=== PATIENT | female | born 1980 | race Caucasian/White ===

== ENCOUNTER 2018-08-21 01:55 | Emergency (ER) | payer OTHER ==
[~2018-08-21] VITALS: Ht 165.1 cm; Wt 68.2 kg
[2018-08-21 02:07] VITALS: Ht 165.1 cm; Wt 68.2 kg
--- NOTE | 2018-08-21 02:11 | ERD ---
ER Documentation Chief Complaint Chief Complaint PSYCH EVAL. ROOMATES STATE PT HAS NOT BEEN ACTING LIKE HER SELF. HPI The patient is a 38-year-old female, presenting to the ER because she has not been acting normally according to her roommate who called 911 to bring her to the hospital. She is not cooperative with the history and physical. Past medical history: Bipolar History/social history/review system: Unable to obtain due to her condition ROS All systems reviewed and are negative except as per history of present illness. Physical Exam Vitals Vital Signs Date Temp Pulse Resp B/P (MAP) Pulse Ox O2 O2 Flow FiO2 Time Delivery Rate 08/21/18 99.1 98 16 143/89 100 02:07 (107) Physical Exam Const: No acute distress. Head: Atraumatic. Eyes: Normal Conjunctiva. ENT: Normal External Ears, Nose and Mouth. Neck: Full range of motion. No meningismus. Resp: Clear to auscultation bilaterally. Cardio: Regular rate and rhythm. Abd: Soft, non distended, normal bowel sounds, non tender. Skin: No petechiae or rashes. Back: No midline or flank tenderness. Ext: No cyanosis, or edema. Neur: Awake and alert. No focal deficit Psych: Psychotic. Result Diagram: 08/21/18 0220 08/21/18 0220 Results 24 hrs Laboratory Tests Test 08/21/18 02:20 08/21/18 02:26 08/21/18 02:35 08/21/18 02:36 White Blood Count 10.3 10^3/ul Red Blood Count 4.14 10^6/ul Hemoglobin 13.0 g/dl Hematocrit 39.4 % Mean Corpuscular 95.2 fl Volume Mean Corpuscular 31.4 pg Hemoglobin Mean Corpuscular 33.0 g/dl Hemoglobin Concent Red Cell 12.0 % Distribution Width Platelet Count 325 10^3/UL Mean Platelet 9.6 fl Volume Immature 0.500 % Granulocytes % Neutrophils % 63.8 % Lymphocytes % 27.2 % Monocytes % 6.9 % Eosinophils % 1.1 % Basophils % 0.5 % Nucleated Red Blood 0.0 /100WBC Cells % Immature 0.050 10^3/ul Granulocytes # Neutrophils # 6.6 10^3/ul Lymphocytes # 2.8 10^3/ul Monocytes # 0.7 10^3/ul Eosinophils # 0.1 10^3/ul Basophils # 0.1 10^3/ul Nucleated Red Blood 0.0 10^3/ul Cells # Sodium Level 141 mmol/L Potassium Level 3.4 mmol/L Chloride Level 107 mmol/L Carbon Dioxide 24 mmol/L Level Anion Gap 10 Blood Urea Nitrogen 15 mg/dl Creatinine 0.87 mg/dl Est Glomerular > 60 mL/min Filtrat Rate mL/min Glucose Level 122 mg/dl Calcium Level 9.7 mg/dl Total Bilirubin 0.1 mg/dl Direct Bilirubin 0.00 mg/dl Indirect Bilirubin 0.1 mg/dl Aspartate Amino 54 IU/L Transf (AST/SGOT) Alanine 57 IU/L Aminotransferase (A LT/SGPT) Alkaline 84 IU/L Phosphatase Total Protein 7.3 g/dl Albumin 4.4 g/dl Globulin 2.90 g/dl Albumin/Globulin 1.51 Ratio Beta HCG, < 2.4 mIU/ml Quantitative Salicylates Level < 1.0 mg/dl Acetaminophen Level < 10.0 ug/ml Ethyl Alcohol Level < 10.0 mg/dl Urine Color ARLEN Urine Clarity SLIGHTLY CLOUDY Urine pH 7.0 Urine Specific 1.014 [place] Urine Ketones NEGATIVE mg/dL Urine Nitrite NEGATIVE mg/dL Urine Bilirubin NEGATIVE mg/dL Urine Urobilinogen 1+ mg/dL Urine Leukocyte TRACE [place]/ul Esterase Urine Microscopic > 182 /HPF RBC Urine Microscopic 21 /HPF WBC Urine Squamous FEW /HPF Epithelial Cells Urine Bacteria FEW /HPF Urine Mucus FEW /HPF Urine Hemoglobin 3+ mg/dL Urine Glucose NEGATIVE mg/dL Urine Total Protein 1+ mg/dl Urine Opiates Negative Screen Urine Barbiturates Negative Urine Amphetamines Negative Screen Urine Negative Benzodiazepines Screen Urine Cocaine Negative Screen Urine Cannabinoids Negative Bedside Urine pH 7.0 (LAB) Bedside Urine 2+ Protein (LAB) Bedside Urine Negative Glucose (UA) Bedside Urine Negative Ketones (LAB) Bedside Urine Blood 3+ Bedside Urine Negative Nitrite (LAB) Bedside Urine Trace Leukocyte Esterase (L POC Beta HCG, NEGATIVE Qualitative Current Medications Medications Dose Sig/Kevon Start Time Status Last (Trade) Ordered Route PRN Stop Time Admin Dose Reason Admin 5 mg BID PO 08/21/18 UNV Aripiprazole 09:00 (Abilify) Procedures/MDM MEDICAL MAKING DECISION: The patient is a 38-year-old female, presenting with acute psychosis, acute hypokalemia. She was treated with potassium chloride 40 mg p.o. for acute hypokalemia with good response The differential diagnoses considered include but are not limited to decompensated psychiatric illness, anxiety attack, panic attack, substance abuse Consultation: She was evaluated by telepsychiatrist who put on treatment 5150 hold and recommended Abilify Departure Diagnosis: Primary Impression: Psychosis Additional Impression: Hypokalemia Condition: Stable Comments The patient's blood pressure was elevated (>120/80) but appears stable without evidence of hypertension emergency or urgency. The patient was counseled about the risks of hypertension and urged to pursue outpatient monitoring and therapy within a week with their primary care physician. She is awaiting for PET evaluation CARLOS MARTINES MD Aug 21, 2018 02:11
--- NOTE | 2018-08-21 03:08 | PSY ---
Date/Time of Note Date/Time of Note DATE: 08/21/18 TIME: 03:06 Psychiatric Subjective Eval Consent Pt consented to telemedicine: Yes Subjective Evaluation Patient location: emergency Chief Complaint: PSYCH EVAL. ROOMATES STATE PT HAS NOT BEEN ACTING LIKE HER SELF. Medical history Problems Medical Problems: (1) Diabetes Status: Acute Psychiatric Objective Eval Mental Status Examination: Laboratory Results Laboratory Tests Test 08/21/18 02:20 08/21/18 02:35 08/21/18 02:36 White Blood Count 10.3 10^3/ul Red Blood Count 4.14 10^6/ul Hemoglobin 13.0 g/dl Hematocrit 39.4 % Mean Corpuscular Volume 95.2 fl Mean Corpuscular Hemoglobin 31.4 pg Mean Corpuscular Hemoglobin Concent 33.0 g/dl Red Cell Distribution Width 12.0 % Platelet Count 325 10^3/UL Mean Platelet Volume 9.6 fl Immature Granulocytes % 0.500 % Neutrophils % 63.8 % Lymphocytes % 27.2 % Monocytes % 6.9 % Eosinophils % 1.1 % Basophils % 0.5 % Nucleated Red Blood Cells % 0.0 /100WBC Immature Granulocytes # 0.050 10^3/ul Neutrophils # 6.6 10^3/ul Lymphocytes # 2.8 10^3/ul Monocytes # 0.7 10^3/ul Eosinophils # 0.1 10^3/ul Basophils # 0.1 10^3/ul Nucleated Red Blood Cells # 0.0 10^3/ul Bedside Urine pH (LAB) 7.0 Bedside Urine Protein (LAB) 2+ Bedside Urine Glucose (UA) Negative Bedside Urine Ketones (LAB) Negative Bedside Urine Blood 3+ Bedside Urine Nitrite (LAB) Negative Bedside Urine Leukocyte Esterase (L Trace POC Beta HCG, Qualitative NEGATIVE Assessment and Plan Recommendation/Plan Discharge Disposition: Psychiatric inpatient Legal Status: Release involuntary hold Assessment Additional comments: IDENTIFYING INFORMATION: 38 year old Female patient who is currently located at the hospital and for whom psychiatric consultation was requested. SOURCES OF INFORMATION: The patient who appears to be somewhat reliable and the medical records; the nursing staff. CHIEF COMPLAINT: "I have bipolar disorder type 1, we were fighting with my roommate". HISTORY OF PRESENT ILLNESS: The patient was interviewed via telemedicine in the presence of and under the supervision of nursing staff of the hospital. The consent to conducting this interview via telemedicine was obtained by the nursing staff at the hospital. The patient reports having a verbal argument with her roommate, has insomnia. Reports that she is dreaming when asked to whom she talking to while RTIS. The patient denies having AH, VH, delusions, low appetite. The patient reports drinking occasionally. Last drink was a few days ago. The patient denies using alcohol heavily or regularly. The patient denies using any other substances. In terms of past psychiatric history, the patient reports having a history of past psychiatric hospitalizations; last time was 1 week ago. PAST MEDICAL HISTORY: none. CURRENT MEDICATIONS: lithium 900 mg po qhs. ALLERGIES TO MEDICATIONS: NKDA. LABORATORY TESTS: CBC unremarkable, test negative. SOCIAL HISTORY: declined to provide any information regarding her SH. REVIEW OF SYSTEMS: Constitutional (e.g., fever, weight loss): negative; Eyes, Ears, Nose, Mouth, Throat: negative; Cardiovascular: negative; Respiratory: negative; Gastrointestinal: negative; Genitourinary: negative; Musculoskeletal: negative; Integumentary (skin and/or breast): negative; Neurological: negative; Psychiatric: as per HPI; Endocrine: negative; Hematologic/Lymphatic: negative; Allergic/Immunologic: negative. MENTAL STATUS EXAMINATION: General Appearance and Behavior: restless, appears to be responding to internal stimuli, partially cooperative with most of the interview, distant, suspicious with the current interviewer, makes poor eye contact, poorly groomed, normal psychomotor activity, no abnormal movements noted. Speech: Normal rate, regular rhythm, normal latency, normal volume. Flow of thought: tangential, illogical at times, Content of thought: + auditory hallucinations, + paranoid delusions, no visual hallucinations, denies suicidal ideation; no homicidal ideation. Mood: "OK". Affect: somewhat suspicious, flat, decreased range of reactivity. Attention: normal based on the interview. Insight: poor. Judgment: poor. Memory: normal based on the interview. Sensorium: alert and oriented to person, date, place. ASSESSMENT: The patient's presentation and history are consistent with the diagnosis of unspecified psychotic disorder. The patient presents with psychotic features in the context of medication compliance, psychosocial stressors. The patient is responding to internal stimuli during the evaluation. The patient was also somewhat irritable during the evaluation. PLAN: - Medication management: Would start Abilify 5 mg po bid. would continue lithium level at home dose. Would start haloperidol 5 mg IM PRN severe agitation q4 hours. Would start diphenhydramine 50 mg IM PRN severe agitation q4 hours. Would start lorazepam 2 mg IM PRN severe agitation q4 hours Will defer to the inpatient psychiatry team for other medication changes. - Labs: Please check CBC, CMP, Alcohol level, UDS, test, lithium level. - Psychotherapy: Provided supportive psychotherapy and psychoeducation. - Disposition: Would recommend involuntary admission to the inpatient psychiatric unit given the severity of the patient's psychiatric condition and the fact that the patient is an imminent danger to self and/or others so long as the patient has been cleared medically for admission to psychiatry. Inpatient psychiatric admission is at this time the least restrictive environment where the patient can receive the psychiatric care that is needed. Would place on suicide precautions. The patient fulfills criteria for being placed on an involuntary hold for being gravely disabled due to a psychiatric disorder. Discussed about the above plan with Dr. Dwyer. LOIS GARCIA MD Aug 21, 2018 03:08
[2018-08-21] MEDS ORDERED: LITH300T5 PO (05:33)
[2018-08-21] MEDS ORDERED: BUPR150T6 PO (05:34)
[2018-08-21 09:00] VITALS: BP 114/57; PULSE 68; RESP 20
[2018-08-21] MEDS ORDERED: ARIPIPRAZOLE 5 MG TAB PO SCH (09:00)
== END 2018-08-21 09:34 | disposition home or self-care (01) ==
LOC: E/R 01:55
DX: F29 Unspecified psychosis not due to a substance or known physiological condition (principal); R40.2142 Coma scale, eyes open, spontaneous, at arrival to emergency department; R40.2362 Coma scale, best motor response, obeys commands, at arrival to emergency department; R40.2222 Coma scale, best verbal response, incomprehensible words, at arrival to emergency department; E87.6 Hypokalemia
CPT/HCPCS: 36415; 80053; 80307; 81001; 81003; 81025; 84702; 85025; 99283